=== PATIENT | male | born 1945 | race Caucasian/White ===

== ENCOUNTER 2019-10-04 19:42 | Emergency (ER) | payer OTHER ==
[~2019-10-04] VITALS: Ht 175.3 cm; Wt 87.5 kg
--- NOTE | ~2019-10-04 | EMS ---
[address] [address] EMS Patient Care Report Name: JULIANE CHAWLA Room #: DEP COY Scales#: [id number] Admission: 10/04/19 Attend Phys: Discharge: 10/04/19 Date of : 43 Report #: [id number] THIS REPORT FOR: //name// Report Transmitted: 10/04/2019 21:05 EMS Care Summary [facility] MED-ACT Incident [id number] @ 10/04/2019 18:53 Incident Location [id number] [place] [address] Patient ALDEN CHAWLA Male, 74 Years 1945 Patient Address [address] [place] [address] Patient History Cardiac Arrest,Myocardial Infarction (OR), Patient Allergies Narcotic agents allergy, Patient Medications Atorvastatin, Losartan, Guaifenesin, Ranitidine, Multivitamin, Allopurinol, ASA, Tylenol, Carvedilol, Furosemide, Calcium Citrate, Prilosec, Coenzyme Q10, Fluticasone, Zetia, Chief Complaint Unsteady, "not walking right" Disposition Transported No Lights/[place] Dispatch Reason Sick Person Transported To [facility] Narrative M1135 called to a 74 year old male patient with a chief complaint of being "unbalanced." Arrived to find patient sitting on the floor of his office in [facility] [address] [place] [address] EMS Patient Care Report Name: JULIANE CHAWLA Room #: DEP Mega#: [id number] Admission: 10/04/19 Attend Phys: Discharge: 10/04/19 Date of : 43 Report #: [id number] obvious distress. Patient's respirations were regular and unlabored, his skin color and condition were normal, and his affect was calm. Patient reports he was getting out the shower and "had a hard time drying off" because he couldn't "make his body do what he wanted." Patient also relayed he felt like he "wasn't walking right" when he left the bathroom. Patient states he made it to his office and had to lower himself to the ground because he couldn't go any farther. Patient denied any chest pain, shortness of breath, dizziness, and lightheadedness. Patient stated he felt "kind of weak, but mostly off balance." A: See assessments tab Patient contact made in patient's office. History, vitals obtained, and patient placed on 4 lead EKG monitoring. PHCSS performed - negative for arm drift, slurred speech, and facial droop. Patient assisted into stair chair and moved to cot without incident. Patient secured per protocol. Patient moved to and loaded into ambulance without incident. Vitals reassessed. 12 lead EKG performed. Transport to [facility] initiated. Vitals and patient condition monitored throughout transport. Patient reported he felt "more like himself" by end of transport, but he was not able to elaborate further. Biocom given en route. Patient care transferred to RNs at [facility] in [place] bed. Initial Vitals @19:36P: 76,BP: 112/60,GCS: 15,SpO2: 97, @19:18P: 82,R: 16,GCS: 15,SpO2: 96, @19:15P: 74,R: 16,BP: 122/76,GCS: 15,SpO2: 97,Revised Trauma: 12, @19:27P: 80,R: 16,BP: 118/72,GCS: 15,SpO2: 97,Revised Trauma: 12, @19:03P: 82,R: 16,BP: 132/84,Pain: 0/10,GCS: 15,SpO2: 97,Revised Trauma: 12, Assessments @19:33MENTAL:Person Oriented,Time Oriented,Event Oriented,Place Oriented,SKIN:HEENT:LUNG SOUNDS:Right Upper: Mass,Left Upper: Mass,ABDOMEN:Right Upper: Mass,Left Upper: Mass,PELVIS//GI:EXTREMITIES:Left Leg: Edema,Right Leg: Edema,Left Arm: No Abnormalities,Right Arm: No Abnormalities,PULSE:Radial: 2+ Normal,NEURO: Impression Generalized Weakness Procedures @19:1812-Lead ECGSucceeded@19:33ALS AssessmentResponse: UnchangedSucceeded Timeline 18:51,Call Received [facility] [address] [place] [address] EMS Patient Care Report Name: JULIANE CHAWLA Room #: SIDNEY Scales#: [id number] Admission: 10/04/19 Attend Phys: Discharge: 10/04/19 Date of : 43 Report #: [id number] 18:51,Psap Call 18:53,Dispatched 18:53,En Route 18:59,On Scene 19:01,At Patient 19:03,BP: 132/84 M,PULSE: 82,RR: 16 R,SPO2: 97 Ox,ETCO2: ,BG: ,PAIN: 0,GCS: 15, 19:15,BP: 122/76 M,PULSE: 74,RR: 16 R,SPO2: 97 Ox,ETCO2: ,BG: ,PAIN: ,GCS: 15, 19:18,12-Lead ECG,Succeeded, 19:18,BP: / M,PULSE: 82,RR: 16 R,SPO2: 96 Ox,ETCO2: ,BG: ,PAIN: ,GCS: 15, 19:19,Depart Scene 19:27,BP: 118/72 M,PULSE: 80,RR: 16 R,SPO2: 97 Ox,ETCO2: ,BG: ,PAIN: ,GCS: 15, 19:33,ALS Assessment,Response: UnchangedSucceeded, 19:36,BP: 112/60 M,PULSE: 76,RR: R,SPO2: 97 Ox,ETCO2: ,BG: ,PAIN: ,GCS: 15, 19:38,At Destination 19:57,Call Closed Disclaimer v1.1 Copyright 2020 [employer] This EMS Care Summary contains data elements from the applicable legal record (which may be displayed differently). It is designed to provide pertinent information for the following purposes: continuity of care, clinical quality, and state data reporting. The complete legal record is available to ED staff and administrators of the receiving hospital in ES's Patient Tracker. All data is provided "as is."
[2019-10-04 20:05] LABS: ABSOLUTE NEUTROPHILS 2.6 thou/uL (1.4-8.2); BASOPHILS 1.1 % (0.0-2.0); EOSINOPHILS 1.5 % (0.0-3.0); HEMATOCRIT 39.9 % (42.0-52.0); HEMOGLOBIN 13.5 gm/dL (14.0-18.0); LYMPHOCYTES 54.3 % (24.0-44.0); MCH 36.6 pg (26.0-34.0); MCHC 33.9 g/dL (28.0-37.0); MCV 107.9 fL (80.0-100.0); MONOCYTES 7.5 % (1.0-8.0); PLATELET COUNT 174 thou/uL (150-400); POLYS 35.6 % (36.0-66.0); RDW 14.3 % (10.5-14.5); WBC 7.2 thou/uL (4.0-11.0)
[2019-10-04 20:15] LABS: ANION GAP 13 mmol/L (7-16); BUN 12 mg/dL (7-18); CALCIUM 8.5 mg/dL (8.5-10.1); CHLORIDE 95 mmol/L (98-107); CO2 21 mmol/L (21-32); GLUCOSE 79 mg/dL (74-106); POTASSIUM 4.1 mmol/L (3.5-5.1); SODIUM 129 mmol/L (136-145)
[2019-10-04 20:23] LABS: TROPONIN-I <0.06 ng/mL (<0.06)
[2019-10-04 20:54] VITALS: BP 140/64
--- NOTE | 2019-10-05 08:01 | EKG ---
[facility] [place] [address] ELECTROCARDIOGRAM REPORT Name: JULIANE CHAWLA [id number] Admission: 10/04/19 Attend Phys: Discharge: 10/04/19 Date of : 43 Report #: [id number] THIS REPORT FOR: cc: Jay Elam MD, Stephen A. 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: [facility] MARY[place]E : 1945 Requested By: Lee Banks Order Number: [id number] MD: Jef Salazar Measurements Intervals [place] Rate: 70 P: 69 MA: 258 QRS: 63 QRSD: 95 T: 50 QT: 382 QTc: 413 Interpretive Statements Sinus rhythm Atrial premature complexes Prolonged MA interval Probable left atrial enlargement Anterior infarct, old Compared to ECG 06/08/2000 11:29:14 Atrial premature complex(es) now present Electronically Signed On 10-05-2019 8:01:34 CDT by Jef Salazar [email or web address] <ELECTRONICALLY SIGNED> By: Jef Salazar MD, [facility] 10/05/19 0801 1950 1950 Jef Salazar MD, [facility] /EPI
== END 2019-10-04 21:15 | disposition home or self-care (01) ==
LOC: ER 19:42
PROVIDERS: Emergency Medicine
DX: R53.1 Weakness (principal); J44.9 Chronic obstructive pulmonary disease, unspecified; K21.9 Gastro-esophageal reflux disease without esophagitis; I25.2 Old myocardial infarction; Z95.1 Presence of aortocoronary bypass graft